=== PATIENT | male | born 1945 | race Caucasian/White ===

== ENCOUNTER 2022-06-19 10:24 | Outpatient (CLI) | payer MEDICARE, BC, SELFPAY ==
--- NOTE | ~2022-06-19 | XR_ITS ---
XR abdomen/kub 1V 06/19/2022 10:57 Indication: Change in bowel habits Procedure: KUB Comparison: No prior studies for comparison. Findings: There are pelvic phleboliths. Bowel gas pattern nonobstructive. No acute osseous abnormalit y. No evidence for organomegaly or renal stones. Impression: 1: Nonobstructive bowel gas pattern. Reviewed, dictated and finalized at location A. SKATING [employer]ACH Impression: 1: Nonobstructive bowel gas pattern.
== END 2022-06-19 10:25 | disposition home or self-care (01) ==
PROVIDERS: PCP Internal Medicine; Visit Provider Nurse Practitioner
DX: K59.00 Constipation, unspecified (principal); R14.0 Abdominal distension (gaseous)
CPT/HCPCS: 74018

== ENCOUNTER 2022-07-24 01:50 | Day surgery (SDC) | payer MEDICARE, BC, SELFPAY ==
[2022-07-11 13:30] VITALS: BMI 28.4
[2022-07-24 08:40] VITALS: BP 135/85; PULSE 83; RESP 18; TEMP 36.2; O2SAT 98; BMI 28.0
--- NOTE | 2022-07-24 08:58 | PM.HPGS ---
History of Present Illness History of Present Illness Consent: Risks, benefits, and alternatives have been discussed and questions answered. Patient agrees to proceed with procedure. Chief complaint: constipation, abdominal distension,change in bowel Narrative: Carter Roberts . is a 77 year old male ?has had a change in bowel habits consisting of constipation, abdominal bloating and increased gas.? Almost every week and he has been having to use [id number] Dulcolax to have a bowel movement.? He states when he does use a Dulcolax he will have watery diarrhea for the rest the day and sometimes the next day but his abdominal bloating and gas to improve along with good bowel clean out.? He will then not have a bowel movement until he takes a Dulcolax again.? He used to have a bowel movement almost daily.? He states that his stools are always soft and thin. Even when he was constipated when his bowels did move they were not well formed. Review of Systems Review of Systems: All systems reviewed & are unremarkable except as noted in HPI and below PMFSH Past Medical History Medical History Bloating Change in bowel habits Constipation Surgical History Surgical History Hx of hemorrhoidectomy Family History Family History Father Parkinson disease Social History Social History Smoking status: Never smoker Second hand tobacco smoke exposure: No Alcohol intake: current Alcohol use details: socially Substance use: never Substance use type: does not use Education: Associate Degree Living arrangements: with family Occupation/Education: retired Gender identity (if verbalized by the patient): Male Spiritual care concerns: No Meds Home Medications and Allergies Home Medications Medication Instructions Recorded Confirmed Type alprazolam 0.5 mg tablet 0.5 mg PO PRN PRN Anxiety 06/16/22 07/24/22 History ascorbate calcium (vitamin C) 500 500 mg PO DAILY 06/16/22 07/24/22 History mg tablet aspirin 81 mg tablet,delayed 81 mg PO DAILY 06/16/22 07/24/22 History release biotin 1 mg capsule 1 mg PO DAILY 06/16/22 07/24/22 History fluticasone propionate 50 1 spray intranasal DAILY 06/16/22 07/24/22 History mcg/actuation nasal spray,suspension gabapentin 100 mg capsule 100 mg PO .prn 06/16/22 07/24/22 History metoprolol tartrate 25 mg tablet 12.5 mg PO DAILY 06/16/22 07/24/22 History piroxicam 20 mg capsule 20 mg PO DAILY 06/16/22 07/24/22 History rosuvastatin 10 mg tablet 10 mg PO DAILY 06/16/22 07/24/22 History vitamin B comp no.3-folic acid 1 1 tablet PO DAILY 06/16/22 07/24/22 History mg-vit C 60 mg-biotin 300 mcg tablet Allergies Allergy/AdvReac Type Severity Reaction Status Date / Time No Known Allergies Allergy Verified 07/24/22 08:47 Vital Signs Vital Signs - 24 hr 07/24/22 08:40 Temperature 36.2 C L Pulse Rate 83 Respiratory Rate 18 Blood Pressure 135/85 Pulse Oximetry 98 Oxygen Delivery Room Air Exam Const: General: alert Orientation/consciousness: patient oriented x3 Resp: Auscultation: clear to auscultation bilaterally Cardio: Rhythm: regular rhythm GI: GI Palp: Yes Soft to palpation and No Tenderness to palpation present (GI) Neuro: General: patient oriented x3 Assessment and Plan Assessment and plan (1) Change in bowel habits: Code(s): R19.4 - Change in bowel habit Status: Acute Assessment and Plan: Colonoscopy with possible biopsy or polypectomy or cautery or injection of substances.
[2022-07-24] MEDS: LACTATED RINGERS 1,000 ML 150 ML IV CONT (09:00)
--- NOTE | 2022-07-24 09:31 | WPDANESEPPF ---
Anes - Initial Pre Proc Eval Procedure: Operation Date: 07/24/22 09:30 Proposed Procedures p Colonoscopy - Ricky Murrieta MD Date/Time: 07/24/22 09:31 Surgeon: Ricky Murrieta MD Pre Op Diagnosis: constipation, abdominal distension,change in bowel Patient Data Age: 77 Gender: M Height: 1.83 m Weight: 93.6 kg Last Vital Signs Temp 97.1 F L 07/24/22 08:40 Pulse 83 07/24/22 08:40 Resp 18 07/24/22 08:40 BP 135/85 07/24/22 08:40 Pulse Ox 98 07/24/22 08:40 O2 Del Method Room Air 07/24/22 08:40 Allergies Allergy/AdvReac Type Severity Reaction Status Date / Time No Known Allergies Allergy Verified 07/24/22 08:47 Home Medications Medication Instructions Recorded Confirmed Type alprazolam 0.5 mg tablet 0.5 mg PO PRN PRN Anxiety 06/16/22 07/24/22 History ascorbate calcium (vitamin C) 500 500 mg PO DAILY 06/16/22 07/24/22 History mg tablet aspirin 81 mg tablet,delayed 81 mg PO DAILY 06/16/22 07/24/22 History release biotin 1 mg capsule 1 mg PO DAILY 06/16/22 07/24/22 History fluticasone propionate 50 1 spray intranasal DAILY 06/16/22 07/24/22 History mcg/actuation nasal spray,suspension gabapentin 100 mg capsule 100 mg PO .prn 06/16/22 07/24/22 History metoprolol tartrate 25 mg tablet 12.5 mg PO DAILY 06/16/22 07/24/22 History piroxicam 20 mg capsule 20 mg PO DAILY 06/16/22 07/24/22 History rosuvastatin 10 mg tablet 10 mg PO DAILY 06/16/22 07/24/22 History vitamin B comp no.3-folic acid 1 1 tablet PO DAILY 06/16/22 07/24/22 History mg-vit C 60 mg-biotin 300 mcg tablet Patient hx anesthesia problems: none Family hx anesthesia problems: none Results Review: All pre-operative results and documents have been reviewed as part of the pre-operative evaluation. [facility] Past Medical History Medical History Bloating Change in bowel habits Constipation Surgical History Surgical History Hx of hemorrhoidectomy Family History Family History Father Parkinson disease Social History Social History Smoking status: Never smoker Second hand tobacco smoke exposure: No Alcohol intake: current Alcohol use details: socially Substance use: never Substance use type: does not use Education: Associate Degree Living arrangements: with family Occupation/Education: retired Gender identity (if verbalized by the patient): Male Spiritual care concerns: No Anes - Eval Final PreProcedure Day of Procedure 07/24/22 09:31 Patient weight: normal Heart: regular rate and rhythm Lungs: clear to auscultation Airway: Mallampati scale class II Neurological: alert and oriented Last oral intake: >/= 8 hours ASA classification: III Emergent: no Anesthetic plan: proceed Anesthesia type and monitoring: general GIVS and standard monitoring Results Review: All pre-operative results and documents have been reviewed as part of the pre-operative evaluation. Informed Consent: The patient's anesthetic plan and its attendant risks and benefits were discussed with the patient/family/POA. Questions were solicited and answers provided to the satisfaction of the patient/family/POA.
[2022-07-24 09:54] VITALS: BP 107/70; PULSE 78; RESP 16; O2SAT 95
[2022-07-24 10:04] VITALS: BP 117/76; PULSE 77; RESP 22; O2SAT 96
[2022-07-24 10:14] VITALS: BP 139/92; PULSE 79; RESP 27; O2SAT 97
== END 2022-07-24 10:30 | disposition home or self-care (01) ==
PROVIDERS: PCP Internal Medicine; Visit Provider Internal Medicine Gastroenterology
PROC: 0DJD8ZZ Inspection of Lower Intestinal Tract, Via Natural or Artificial Opening Endoscopic (ICD-10-PCS; CPT 45378; principal; 2022-07-24 09:30)
DX: R19.4 Change in bowel habit (principal); K64.8 Other hemorrhoids; Z79.82 Long term (current) use of aspirin
CPT/HCPCS: 45378; J2704; J7120